=== PATIENT | female | born 1940 | race Caucasian/White ===

== ENCOUNTER 2024-07-02 15:41 | Emergency (ER) | payer BC ==
[~2024-07-02] VITALS: Ht 162.6 cm; Wt 93.2 kg
[~2024-07-02 15:41] MED LIST: CEFTIN500 MG PO; HCTZ; HCTZ12.5TAB PO; INDERAL LA120 MG PO; LISINOPRIL10 MG PO; MELOXICAM; MOTRIN600 MG PO; NORCO 325 MG-7.1 TAB PO; PEPCID 20MG TAB20 MG PO; PERCOCET 325 MG1 TA2 PO; PRILOSEC 20MG20 MG PO; PRINIVIL10 MG PO; PRINZIDE 25 MG-1 TAB PO; SYNTHROID0.1 MG PO; SYNTHROID0.125 MG/T PO; TIROSINT100 MCG PO; VICODIN 5/5001 UDTAB PO; VITAMIN B-1000 MCG/T PO
[2024-07-02 15:46] VITALS: TEMP 97.6
[2024-07-02 17:01] LABS: COLLECTION METHOD CLEAN CATCH
[2024-07-02 17:07] LABS: BASO # 0.1 K/mm3 (0.0-0.2); BASO % 0.6 % (0.0-2.0); EOS # 1.9 K/mm3 (0.0-0.7); EOS % 16.8 % (0.0-4.0); GRAN # 6.8 K/mm3 (1.4-6.5); GRAN % 58.4 % (42.2-75.2); HEMATOCRIT 44.1 % (37.0-47.0); HEMOGLOBIN 14.4 g/dl (12.5-16.0); LYMPH % 17.5 % (20.0-51.0); MEAN CELL VOLUME 83 fl (80.0-100.0); MEAN CORPUSCULAR HEMOGLOBIN 27 pg (27-31); MEAN CORPUSCULAR HGB CONC 33 g/dl (33.0-37.0); MEAN PLATELET VOLUME 10.6 fl (7.4-10.4); MONO # 0.7 K/mm3 (0.1-0.6); MONO % 6.2 % (1.7-9.3); PLATELET COUNT 362 K/mm3 (130-400); RED BLOOD COUNT 5.34 M/mm3 (4.10-5.30); REDCELL DISTRIBUTION WIDTH-CV 14.5 % (11.5-14.5)
[2024-07-02 17:21] LABS: ALBUMIN 3.5 g/dL (3.4-4.8); CALCIUM 9.1 mg/dL (8.4-10.2); CREATININE, serum 0.91 mg/dL (0.57-1.11); POTASSIUM 3.8 mEq/L (3.5-4.5); TOTAL PROTEIN 6.9 g/dl (6.2-8.1)
[2024-07-02 17:37] LABS: BILIRUBIN,TOTAL 0.4 mg/dL (0.2-1.2)
[2024-07-02 17:51] LABS: URINE APPEARANCE Clear (CLEAR/HAZY); URINE BLOOD Negative (NEGATIVE); URINE COLOR Yellow (YELLOW); URINE GLUCOSE Negative (NEGATIVE); URINE KETONE Negative (NEGATIVE); URINE NITRATE Negative (NEGATIVE); URINE PROTEIN(semi-quant) Negative (NEGATIVE); URINE UROBILINOGEN 0.2 E.U/dL (0.2-1.0)
[2024-07-02] MEDS ORDERED: Acetaminophen 500 MG TAB PO ONE (18:00)
[2024-07-02] MEDS ORDERED: AMOXICILLIN 8751 TAB PO (18:05)
[2024-07-02] MEDS ORDERED: ZITHROMAX Z PA250 MG PO (18:05)
[2024-07-02 18:08] VITALS: BP 121/67; PULSE 60
[2024-07-02] MEDS ORDERED: PREDNISONE20 MG PO (18:13)
[2024-07-02] MEDS ORDERED: ATARAX 25MG25 MG/TAB PO (18:13)
== END 2024-07-02 18:17 | disposition home or self-care (01) ==
LOC: COL.ER 15:41
PROVIDERS: Physician Assistant
DX: J44.1 Chronic obstructive pulmonary disease with (acute) exacerbation (principal); N39.0 Urinary tract infection, site not specified